=== PATIENT | male | born 1985 | race Caucasian/White ===

== ENCOUNTER → 2019-08-18 | Outpatient (CLI) | payer BC ==
[~2019-08-18] MED LIST: METHACHOLINE KIT (J7674) INH ONE; OMEP1CAP73 PO
--- NOTE | 2019-08-18 15:41 | PFTRPT ---
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 Review Status: Not Reviewed Pre-Bronch Post-Bronch Pred Actual %Pred Actual %Chng SPIROMETRY FVC (L) 6.09 5.48 89 5.30 -3 FEV1 (L) 4.87 4.33 88 4.44 2 FEV1/FVC (%) 81 79 97 84 5 FEF 25% (L/sec) 8.55 8.05 94 8.37 4 FEF 50% (L/sec) 5.31 4.58 86 5.79 26 FEF 75% (L/sec) 2.10 1.78 84 1.89 6 FEF 25-75% (L/sec) 4.61 3.96 85 4.43 11 FEF Max (L/sec) 11.17 8.83 79 8.95 1 FIVC (L) 4.75 4.74 FIF 50% (L/sec) 5.37 4.62 85 3.25 -29 FIF Max (L/sec) 4.86 4.20 -13 Expiratory Time (sec) 6.67 6.96 4 Back Extrap Vol (L) 0.13 0.13 -5 Time To FEFmax (sec) 0.076 0.082 8
== END ==
LOC: M CARPUL 14:57
PROVIDERS: ATTEND Internal Medicine Pulmonary Disease
DX: R06.02 Shortness of breath (principal)
CPT/HCPCS: 94070; J7674

== ENCOUNTER → 2022-10-31 | Outpatient (CLI) | payer BC ==
[~2022-10-31] MED LIST changes: -METHACHOLINE KIT (J7674) INH ONE
[2022-10-31 15:51] LABS: BASO % 0.4 % (0.0-1.0); EOS # 0.1 10^3/uL (0.0-0.5); EOS % 1.1 % (0.0-3.0); HEMATOCRIT 44.8 % (42.0-52.0); HEMOGLOBIN 15.1 g/dl (13.5-17.5); LYMPH # 1.6 10^3/uL (1.5-5.0); LYMPH % 28.9 % (24.0-44.0); MEAN CORPUSCULAR HEMOGLOBIN 30.3 pg (27.0-33.0); MEAN CORPUSCULAR HGB CONC 33.7 g/dl (32.0-36.5); MONO # 0.6 10^3/uL (0.0-0.8); MONO % 10.3 % (2.0-8.0); NEUTROPHILS # 3.3 10^3/uL (1.5-8.5); NEUTROPHILS % 59.1 % (36.0-66.0); PLATELET COUNT, AUTOMATED 294 10^3/uL (150-450); RED BLOOD COUNT 4.98 10^6/uL (4.30-6.10); WHITE BLOOD COUNT 5.5 10^3/uL (4.0-10.0)
[2022-10-31 15:52] LABS: IRON (FE) 58 UG/DL (65-175)
[2022-10-31 15:53] LABS: ALBUMIN 4.1 G/DL (3.2-5.2); ALKALINE PHOSPHATASE 83 U/L (46-116); ALT/SGPT 32 U/L (7.0-40); AST/SGOT 17 U/L (<34); BILIRUBIN,TOTAL 0.4 MG/DL (0.3-1.2); BLOOD UREA NITROGEN 11 MG/DL (9-23); CALCIUM LEVEL 9.1 MG/DL (8.5-10.1); CARBON DIOXIDE LEVEL 26 MMOL/L (20-31); CHLORIDE LEVEL 110 MMOL/L (98-107); GLOMERULAR FILTRATION RATE > 60.0 (>60); GLUCOSE, FASTING 88 MG/DL (60-100); PERCENT SATURATION 19.6 % (19.7-50.0); SODIUM LEVEL 144 MMOL/L (136-145); TOTAL IRON BINDING CAPACITY 296 UG/DL (250-425); TOTAL PROTEIN 6.5 G/DL (5.7-8.2)
[2022-10-31 15:56] LABS: FREE T4 0.94 NG/DL (0.89-1.76); THYROID STIMULATING HORMONE 1.421 uIU/ML (0.55-4.78)
[2022-10-31 15:58] LABS: FERRITIN 94.1 NG/ML (10.5-307.3)
[2022-10-31 15:59] LABS: TOTAL 25(OH) VITAMIN D 14.9 NG/ML (20.0-100.0)
[2022-10-31 16:00] LABS: RHEUMATOID FACTOR QUANT < 3.5 IU/ML (<14)
[2022-10-31 16:01] LABS: VITAMIN B12 LEVEL 293 PG/ML (211-911)
[2022-10-31 16:08] LABS: FOLATE 19.59 NG/ML (>5.4)
[2022-10-31 16:50] LABS: ERYTHROCYTE SEDIMENTATION RATE 2 mm/hr (0-15)
== END ==
LOC: M PLALAB 13:35
PROVIDERS: ATTEND Psychiatry & Neurology Neurology
DX: E07.9 Disorder of thyroid, unspecified (principal); G43.909 Migraine, unspecified, not intractable, without status migrainosus

== ENCOUNTER → 2023-03-19 | Outpatient (CLI) | payer BC | LOC: M SLEEP HO 10:39 | PROVIDERS: ATTEND Internal Medicine Pulmonary Disease | DX: R06.83 Snoring (principal) ==

== ENCOUNTER 2023-04-08 12:38 | Day surgery (SDC) | payer BC ==
[~2023-04-08] VITALS: Ht 188 cm; Wt 97.6 kg
[~2023-04-08 12:38] MED LIST changes: +ADVA115A INH; +ERGO500029 PO; +MONT-5 PO; +NS 1,000 ML IV ONE
[2023-04-08] MEDS ORDERED: D3 +TAB PO (13:10)
[2023-04-08] MEDS ORDERED: fentaNYL 100 MCG/2 ML INJECTION As Ordered ONE (14:26)
[2023-04-08] MEDS ORDERED: LIDOCAINE 2% 100MG/5ML SDV (FOR ANES.) As Ordered ONE (14:28)
[2023-04-08] MEDS ORDERED: propofoL 200 MG/20 ML VIAL As Ordered ONE (14:29)
[2023-04-08 15:00] VITALS: TEMP 97.4
[2023-04-08 15:18] VITALS: BP 119/66; O2SAT 97
== END 2023-04-08 15:29 | disposition home or self-care (01) ==
LOC: M SDC 12:38
PROVIDERS: ATTEND Internal Medicine Gastroenterology
DX: K22.89 Other specified disease of esophagus (principal); R10.13 Epigastric pain; R13.10 Dysphagia, unspecified
CPT/HCPCS: 43239; 88305; J3010

== ENCOUNTER → 2023-07-15 | Outpatient (CLI) | payer BC ==
[~2023-07-15] MED LIST changes: +D3 +TAB PO; +ISOVUE-370 76% 100ML VIAL As Ordered ONE; -NS 1,000 ML IV ONE
== END ==
LOC: M RAD 09:05
PROVIDERS: ATTEND Neurological Surgery
DX: I67.1 Cerebral aneurysm, nonruptured (principal)

== ENCOUNTER → 2023-11-01 | Outpatient (CLI) | payer OTHER, BC ==
[~2023-11-01] MED LIST changes: -ISOVUE-370 76% 100ML VIAL As Ordered ONE
== END ==
LOC: M SLEEP 20:00
PROVIDERS: ATTEND Nurse Practitioner Family
DX: R06.83 Snoring (principal)

== ENCOUNTER → 2024-08-24 | Outpatient (CLI) | payer OTHER, BC ==
[~2024-08-24] MED LIST changes: +ISOVUE-370 76% 100ML VIAL As Ordered ONE
== END ==
LOC: M RAD 15:45
PROVIDERS: ATTEND Internal Medicine Gastroenterology
DX: R10.13 Epigastric pain (principal)
CPT/HCPCS: 74177; Q9967